=== PATIENT | female | born 1950 ===

== ENCOUNTER → 2017-10-16 08:00 | Outpatient (CLI) | payer OTHER ==
[~2017-10-16] VITALS: Ht 154.9 cm; Wt 72.6 kg
[~2017-10-16 08:00] MED LIST: AVAPRO300 MG PO; CATAPRES0.1 MG PO; DUTOPROL 100-11 EACH PO; HUMULIN 70100 UNIT/2 SUBCUTANEO; JANUVIA50 MG PO; NORVASC5 MG PO
== END | disposition home or self-care (01) ==
LOC: EKG 08:00 → EDSTATUS 10-20 10:30 → ICU-2 10-20 10:30 → SURH 10-20 10:30
DX: Z01.810 Encounter for preprocedural cardiovascular examination (principal); C18.5 Malignant neoplasm of splenic flexure; K92.1 Melena

== ENCOUNTER 2018-10-29 10:13 | Day surgery (SDC) | payer OTHER | END 2018-10-29 14:10 | disposition home or self-care (01) | LOC: AMB-ENDOS 10:13 → CIR.AMB 13:45 → AMB-ENDOS 13:45 | DX: K64.1 Second degree hemorrhoids (principal) ==

== ENCOUNTER 2019-11-11 06:30 | Day surgery (SDC) | payer OTHER | END 2019-11-11 12:05 | disposition home or self-care (01) | LOC: AMB-ENDOS 06:30 | DX: C18.5 Malignant neoplasm of splenic flexure (principal); K64.1 Second degree hemorrhoids ==

== ENCOUNTER 2020-12-14 09:26 | Day surgery (SDC) | payer OTHER | END 2020-12-14 15:00 | disposition home or self-care (01) | LOC: AMB-ENDOS 09:26 | PROVIDERS: ATTEND Colon & Rectal Surgery | DX: K62.89 Other specified diseases of anus and rectum (principal); K64.0 First degree hemorrhoids; Z20.828 Contact with and (suspected) exposure to other viral communicable diseases ==